=== PATIENT | male | born 1970 | race Caucasian/White ===

== ENCOUNTER → 2018-09-14 | Outpatient (CLI) | payer BC ==
--- NOTE | 2018-09-14 22:55 | CT ---
EXAMINATION TYPE: CT sinus wo con DATE OF EXAM: 09/14/2018 COMPARISON: Prior sinus CT August 12, 2014. HISTORY: Polyps per patient. Chronic sinusitis per order. CT DLP: 551 mGycm. Automated Exposure Control for Dose Reduction was Utilized. TECHNIQUE: CT scan of the sinuses is performed without contrast, axial images are obtained, coronal r eformatted images are also reviewed. FINDINGS: A hypoplastic or nonformed right frontal sinus remains present. Incidental persistent anter ior metopic suture is noted. Marked interval improvement in patchy opacification mucosal thickening f rom prior study. The surgically created ostiomeatal complex is patent bilaterally on the coronal imag es. Visualized portion of mastoid air cells show no abnormal opacification. The globes are intact bilate rally. IMPRESSION: Postsurgical change redemonstrated. Interval resolution of chronic paranasal pansinusiti s. No acute or chronic paranasal sinus disease identified in current study
== END | disposition home or self-care (01) ==
LOC: RADCTMAIN 16:58
PROVIDERS: ATTEND Otolaryngology
DX: J32.4 Chronic pansinusitis (principal); Z98.890 Other specified postprocedural states
CPT/HCPCS: 70486

== ENCOUNTER → 2019-08-06 | Outpatient (CLI) | payer BC ==
--- NOTE | 2019-08-06 22:44 | CT ---
EXAMINATION TYPE: CT sinus wo con DATE OF EXAM: 08/06/2019 COMPARISON: CT sinuses September 14, 2018. HISTORY: chronic sinusitis per order. Additional symptoms of sore throat for 3 months with history of prior sinus surgery per patient. CT DLP: 423 mGycm. Automated Exposure Control for Dose Reduction was Utilized. TECHNIQUE: CT scan of the sinuses is performed without contrast, axial images are obtained, coronal r eformatted images are also reviewed. FINDINGS: There is mild mucosal thickening involving the ethmoid sinuses bilaterally more prominent p osteriorly redemonstrated. No significant change from prior. Mild eccentric mucosal thickening involv ing the left maxillary sinus axial image 30 is new from prior study. There is hypoplastic or nonforme d right frontal sinus redemonstrated. Persistent anterior metopic suture incidentally noted. No signi ficant new suspicious opacification or air-fluid levels. The surgically treated ostiomeatal complex i s patent bilaterally on coronal image 20. Visualized portion of mastoid air cells show no abnormal opacification. The globes are intact bilate rally. IMPRESSION: Chronic paranasal sinus disease as detailed above. No acute sinusitis.
== END | disposition home or self-care (01) ==
LOC: RADCTMAIN 16:47
PROVIDERS: ATTEND Otolaryngology
DX: J32.9 Chronic sinusitis, unspecified (principal)
CPT/HCPCS: 70486

== ENCOUNTER 2020-12-16 09:12 | Day surgery (SDC) | payer BC ==
[2020-12-12 12:25] VITALS: BMI 27.8
[~2020-12-16 09:12] MED LIST: LACTATED RINGERS 1,000 ML IV SCH; LIDOCAINE 1% (10MG/ML) FOR IV START INTRADERMA PRN
[2020-12-16 10:18] VITALS: TEMP 97.3
[2020-12-16] MEDS ORDERED: PROPOFOL 10 MG/ML 20 ML VIAL IV ONE (10:41)
--- NOTE | 2020-12-16 10:59 | P.GSHP ---
History of Present Illness H&P Date: 12/16/20 Chief Complaint: Colon cancer screening Patient has had a colonoscopy. Last colonoscopy 30 years ago. No bowel complaints. No family history of colon cancer. Past Medical History Past Medical History: GERD/Reflux Additional Past Medical History / Comment(s): ALLERGIES. History of Any Multi-Drug Resistant Organisms: None Reported Past Surgical History: Tonsillectomy Additional Past Surgical History / Comment(s): 5 SINUS SURGERIES Past Anesthesia/Blood Transfusion Reactions: Motion Sickness, Postoperative Nausea & Vomiting (PONV) Past Psychological History: No Psychological Hx Reported Smoking Status: Never smoker Past Alcohol Use History: Rare Past Drug Use History: None Reported - Past Family History Mother Family Medical History: No Reported History Medications and Allergies Home Medications Medication Instructions Recorded Confirmed Type ALPRAZolam [Xanax] 0.25 mg PO HS PRN 12/12/20 12/16/20 History Fluticasone Nasal [place] [Flonase 1 spray EA NOSTRIL DAILY 12/12/20 12/16/20 History Nasal [place]] Multivitamins, Thera [Multivitamin 1 tab PO DAILY 12/12/20 12/16/20 History (formulary)] Omeprazole 20 mg PO DAILY 12/12/20 12/16/20 History Vitamin C (Unknown Dose) 1 tab PO DAILY 12/12/20 12/16/20 History Allergies Allergy/AdvReac Type Severity Reaction Status Date / Time No Known Allergies Allergy Verified 12/16/20 10:20 Surgical - Exam Vital Signs Temp Pulse Resp BP Pulse Ox 97.3 F L 52 L 16 102/60 98 12/16/20 10:15 12/16/20 10:15 12/16/20 10:15 12/16/20 10:15 12/16/20 10:15 Physical exam: General: Well-developed, well-nourished HEENT: Normocephalic, sclerae nonicteric Abdomen: Nontender, nondistended Extremities: No edema Neuro: Alert and oriented Assessment and Plan (1) Colon cancer screening Narrative/Plan: Will proceed with colonoscopy Current Visit: Yes Status: Acute Code(s): Z12.11 - ENCOUNTER FOR SCREENING FOR MALIGNANT NEOPLASM OF COLON SNOMED Code(s): 108274209
--- NOTE | 2020-12-16 11:01 | P.PCN ---
Date of Procedure: 12/16/20 Procedure(s) Performed: PREOPERATIVE DIAGNOSIS: Colon cancer screening POSTOPERATIVE DIAGNOSIS: Small ascending colon polyp PROCEDURE: Colonoscopy with biopsy ANESTHESIA: MAC SURGEON: Emery Malave M.D. SPECIMENS: Ascending colon polyp ENDOSCOPIC PROCEDURE: The patient was placed on the endoscopy table in the left decubitus position. The Olympus colonoscope was inserted into the anus and passed under direct visualization to the base of the cecum. The appendiceal orifice was visualized. From that point the scope was slowly withdrawn inspecting all surfaces carefully. There were no neoplastic inflammatory or polypoid lesions throughout the cecum. In the ascending colon small polyp was seen and removed using the snare with cautery technique. The remainder of the ascending, transverse, descending, sigmoid and rectum appeared normal. There was no visible diverticulosis noted. Digital rectal examination was normal. The patient was taken to the recovery room in stable condition per anesthesia guidelines. RECOMMENDATIONS: Resume diet. Await biopsy results.
[2020-12-16 11:13] VITALS: RESP 20
[2020-12-16 12:03] VITALS: BP 112/76; PULSE 77
== END 2020-12-16 11:34 | disposition home or self-care (01) ==
LOC: ORWHC2ENDO 09:12
PROVIDERS: ATTEND Surgery
DX: Z12.11 Encounter for screening for malignant neoplasm of colon (principal); K63.5 Polyp of colon; K21.9 Gastro-esophageal reflux disease without esophagitis; Z90.89 Acquired absence of other organs; Z98.890 Other specified postprocedural states; Z79.899 Other long term (current) drug therapy
CPT/HCPCS: 88305; 45385; J2704; 45380

== ENCOUNTER 2021-11-30 10:57 | Emergency (ER) | payer BC ==
[2021-11-30 11:19] VITALS: PULSE 66; RESP 16; TEMP 97.9
[2021-11-30 11:53] LABS: Appearance,Urine Clear (Clear); Bilirubin,Urine Negative (Negative); Blood,Urine Negative (Negative); Color,Urine Yellow; Glucose,Urine (UA) Negative (Negative); Hyaline Casts,Urine 1 /lpf (0-2); Ketones,Urine Negative (Negative); Leukocyte Esterase,Urine Moderate (Negative); Mucus,Urine Occasional /hpf; Nitrite,Urine Negative (Negative); Protein,Urine Negative (Negative); RBC,Urine <1 /hpf (0-5); Specific Gravity,Urine 1.022 (1.001-1.035); Urobilinogen,Urine <2.0 mg/dL (<2.0); WBC,Urine 1 /hpf (0-5)
[2021-11-30 12:33] VITALS: BP 138/88
[2021-11-30 12:52] LABS: Basophils # (A) 0.1 k/uL (0-0.2); Basophils % (A) 1 %; Eosinophils # (A) 0.2 k/uL (0-0.7); Eosinophils % (A) 2 %; HCT 47.1 % (39.0-53.0); HGB 15.4 gm/dL (13.0-17.5); Lymphocytes # (A) 1.3 k/uL (1.0-4.8); Lymphocytes % (A) 19 %; MCH 30.5 pg (25.0-35.0); MCHC 32.7 g/dL (31.0-37.0); MCV 93.5 fL (80.0-100.0); Monocytes # (A) 0.3 k/uL (0-1.0); Monocytes % (A) 4 %; Neutrophils # (A) 5.3 k/uL (1.3-7.7); Neutrophils % (A) 73 %; Platelet Count 272 k/uL (150-450); RBC 5.04 m/uL (4.30-5.90); RDW 12.4 % (11.5-15.5); WBC 7.2 k/uL (3.8-10.6)
[2021-11-30 13:01] LABS: ALT 28 U/L (4-49); AST 30 U/L (17-59); African American GFR (CKD) >90 (>60 ml/min/1.73 sqM); Albumin 4.5 g/dL (3.5-5.0); Alkaline Phosphatase 76 U/L (38-126); Anion Gap 9 mmol/L; Blood Urea Nitrogen 14 mg/dL (9-20); Calcium 9.1 mg/dL (8.4-10.2); Carbon Dioxide 22 mmol/L (22-30); Chloride 109 mmol/L (98-107); Glucose 110 mg/dL (74-99); Non-African American GFR(CKD) >90 (>60 ml/min/1.73 sqM); Potassium 4.5 mmol/L (3.5-5.1); Sodium 140 mmol/L (137-145); Total Bilirubin 0.6 mg/dL (0.2-1.3); Total Protein 7.4 g/dL (6.3-8.2)
--- NOTE | 2021-11-30 13:22 | CT ---
EXAMINATION TYPE: CT lumbar spine wo con DATE OF EXAM: 11/30/2021 COMPARISON: None HISTORY: Low back pain CT DLP: 954.1 mGycm CONTRAST: None TECHNIQUE: CT of the lumbar spine is performed on a spiral scan at 3 mm thick sections. Reconstructed images are performed in the coronal and sagittal planes. FINDINGS: T12-L1: No focal disc herniation or significant disc bulge is evident. No spinal canal stenosis or neural foraminal stenosis is present. L1-L2: No focal disc herniation or significant disc bulge is evident. No spinal canal stenosis or n eural foraminal stenosis is present L2-L3: No focal disc herniation or significant disc bulge is evident. No spinal canal stenosis or n eural foraminal stenosis is present L3-L4: No focal disc herniation or significant disc bulge is evident. No spinal canal stenosis or n eural foraminal stenosis is present L4-L5: Minimal disc bulge may be present with anterior thecal sac contact. No spinal canal stenosis i s present. L5-S1: Normal disc bulge is present without = compression. No displacement of the exiting nerve roots is evident. No spinal canal stenosis is present. Vertebral alignment appears normal. 0 body heights are preserved. Disc heights appear preserved. Couple of punctate nonobstructing renal stones are identified in the left mid kidney. IMPRESSION: Minimal disc bulge L4-5 and L5-S1. Some mild anterior thecal sac contact without stenosis is present at L4-5.
--- NOTE | 2021-11-30 13:38 | ED ---
General Adult HPI - General Chief complaint: Urogenital Stated complaint: poss UTI Time Seen by Provider: 11/30/21 11:23 Source: patient, RN notes reviewed Mode of arrival: ambulatory Limitations: no limitations - History of Present Illness Initial comments: This a 51-year-old male presents emergency Department chief complaint of urinary frequency. Patient states of recent he has noticed he has to urinate more frequently. Patient states that he is able to empty his bladder is no drooling. He denies any bowel changes including bowel incontinence. Patient states that his nose had some erectile dysfunction issues of glass few weeks. He states tho etimes is negative for infection or able to ejaculate. Patient states her temperature discussed the past. Patient did have recent for physical exam PCP in which nothing was found. Patient states he did not have his prostate checked he has had a colonoscopy in the past. Patient denies any trauma no penile discharge. Patient states he has had back pain and a past BACK pain no pain of his lower extremity no focal weakness. Patient states that at one point he did have some left radicular symptoms. He states this is not present. - Related Data Home Medications Medication Instructions Recorded Confirmed ALPRAZolam [Xanax] 0.125 - 0.25 mg PO HS PRN 12/12/20 11/30/21 Fluticasone Nasal [place] [Flonase 1 spray EA NOSTRIL DAILY 12/12/20 11/30/21 Nasal [place]] Esomeprazole Magnesium [NexIUM 20 mg PO DAILY 11/30/21 11/30/21 24Hr] Fexofenadine HCl [[place]ilma Allergy] 180 mg PO DAILY 11/30/21 11/30/21 Sulfamethox-Tmp 800-160Mg [Bactrim 1 tab PO Q12HR 11/30/21 11/30/21 DS 800-160 mg] Allergies Allergy/AdvReac Type Severity Reaction Status Date / Time sertraline [From Zoloft] AdvReac Itching Verified 11/30/21 13:15 Review of Systems ROS Statement: Those systems with pertinent positive or pertinent negative responses have been documented in the HPI. ROS Other: All systems not noted in ROS Statement are negative. Past Medical History Past Medical History: GERD/Reflux Additional Past Medical History / Comment(s): ALLERGIES. History of Any Multi-Drug Resistant Organisms: None Reported Past Surgical History: Tonsillectomy Additional Past Surgical History / Comment(s): 5 SINUS SURGERIES Past Anesthesia/Blood Transfusion Reactions: Motion Sickness, Postoperative [place] & Vomiting (PONV) Past Psychological History: No Psychological Hx Reported Smoking Status: Never smoker Past Alcohol Use History: Rare Past Drug Use History: None Reported - Past Family History Mother Family Medical History: No Reported History General Exam Limitations: no limitations General appearance: alert, in no apparent distress Head exam: Present: atraumatic, normocephalic, normal inspection Eye exam: Present: normal appearance, PERRL, EOMI. Absent: scleral icterus, conjunctival injection, periorbital swelling ENT exam: Present: normal exam, mucous membranes moist Neck exam: Present: normal inspection, full ROM. Absent: tenderness, meningismus, lymphadenopathy Respiratory exam: Present: normal lung sounds bilaterally. Absent: respiratory distress, wheezes, rales, rhonchi, stridor Cardiovascular Exam: Present: regular rate, normal rhythm, normal heart sounds. Absent: systolic murmur, diastolic murmur, rubs, gallop, clicks GI/Abdominal exam: Present: soft, normal bowel sounds. Absent: distended, tenderness, guarding, rebound, rigid Extremities exam: Present: other (Lower extremity strength equal bilaterally) Neurological exam: Present: alert, oriented X3, reflexes normal. Absent: motor sensory deficit Skin exam: Present: warm, dry, intact, normal color. Absent: rash Course Vital Signs 11/30/21 11/30/21 11:17 12:33 Temperature 97.9 F Pulse Rate 66 Respiratory 16 Rate Blood Pressure 138/88 O2 Sat by Pulse 98 Oximetry Medical Decision Making - Medical Decision Making Patient presented for urinary frequency, and rectal dysfunctional she is. Patient did have full workup given urinalysis unremarkable as is a new symptom. Patient has no active plan to consult patient and family is concerned about back problems. I did image his lumbar spine which shows mild disc bulging patient has no associated symptoms with this. Patient will follow-up with urology made related to BPH type symptoms. - Lab Data Result diagrams: 11/30/21 12:49 11/30/21 12:49 Lab Results 11/30/21 11/30/21 11/30/21 Range/Units 11:43 12:49 12:49 WBC 7.2 (3.8-10.6) k/uL RBC 5.04 (4.30-5.90) m/uL Hgb 15.4 (13.0-17.5) gm/dL Hct 47.1 (39.0-53.0) % MCV 93.5 (80.0-100.0) fL MCH 30.5 (25.0-35.0) pg MCHC 32.7 (31.0-37.0) g/dL RDW 12.4 (11.5-15.5) % Plt Count 272 (150-450) k/uL MPV 8.0 Neutrophils % 73 % Lymphocytes % 19 % Monocytes % 4 % Eosinophils % 2 % Basophils % 1 % Neutrophils # 5.3 (1.3-7.7) k/uL Lymphocytes # 1.3 (1.0-4.8) k/uL Monocytes # 0.3 (0-1.0) k/uL Eosinophils # 0.2 (0-0.7) k/uL Basophils # 0.1 (0-0.2) k/uL Sodium 140 (137-145) mmol/L Potassium 4.5 (3.5-5.1) mmol/L Chloride 109 H (98-107) mmol/L Carbon Dioxide 22 (22-30) mmol/L Anion Gap 9 mmol/L BUN 14 (9-20) mg/dL Creatinine 0.94 (0.66-1.25) mg/dL Est GFR (CKD-EPI)AfAm >90 (>60 ml/min/1.73 sqM) Est GFR (CKD-EPI)NonAf >90 (>60 ml/min/1.73 sqM) Glucose 110 H (74-99) mg/dL Calcium 9.1 (8.4-10.2) mg/dL Total Bilirubin 0.6 (0.2-1.3) mg/dL AST 30 (17-59) U/L ALT 28 (4-49) U/L Alkaline Phosphatase 76 (38-126) U/L Total Protein 7.4 (6.3-8.2) g/dL Albumin 4.5 (3.5-5.0) g/dL Urine Color Yellow Urine Appearance Clear (Clear) Urine pH 6.0 (5.0-8.0) Ur Specific [place] 1.022 (1.001-1.035) Urine Protein Negative (Negative) Urine Glucose (UA) Negative (Negative) Urine Ketones Negative (Negative) Urine Blood Negative (Negative) Urine Nitrite Negative (Negative) Urine Bilirubin Negative (Negative) Urine Urobilinogen <2.0 (<2.0) mg/dL Ur Leukocyte Esterase Moderate H (Negative) Urine RBC <1 (0-5) /hpf Urine WBC 1 (0-5) /hpf Hyaline Casts 1 (0-2) /lpf Urine Mucus Occasional H (None) /hpf Disposition Clinical Impression: Urinary frequency Disposition: HOME SELF-CARE Condition: Stable Instructions (If sedation given, give patient instructions): Urinary Urgency and Frequency (DC), Enlarged Prostate (BPH) (ED) Additional Instructions: Please return to the Emergency Department if symptoms worsen or any other concerns. Is patient prescribed a controlled substance at d/c from ED?: No Referrals: Scottie Floyd MD [Primary Care Provider] - 1-2 days Maximiliano Dubois MD [STAFF PHYSICIAN] - 1-2 days Time of Disposition: 13:34
== END 2021-11-30 14:34 | disposition home or self-care (01) ==
LOC: EC 10:57
DX: R35.0 Frequency of micturition (principal); Z88.7 Allergy status to serum and vaccine
CPT/HCPCS: 36415; 72131; 80053; 81001; 85025

== ENCOUNTER → 2024-11-12 | Outpatient (CLI) | payer BC ==
--- NOTE | 2024-11-12 17:59 | CT ---
EXAMINATION TYPE: CT sinus wo con CT DLP: 429.4 mGycm, Automated exposure control for dose reduction was used. DATE OF EXAM: 11/12/2024 5:17 PM COMPARISON: CT sinus 08/06/2019, 09/14/2018, 08/12/2014. CLINICAL INDICATION:Male, 53 years old with history of J32.0 CHRONIC MAXILLARY SINUSITIS; PHH, chroni c sinus congestion CONTRAST: None. TECHNIQUE: Multiple thin axial images were obtained through the paranasal sinuses without the use of IV contrast. Additional coronal and sagittal reformatted images were submitted for evaluation. FINDINGS: Frontal sinuses: Hypoplastic appearance of the right frontal sinus. Both sinuses are clear. Frontal R ecess: Clear Maxillary Sinuses: Normally developed and aerated. Surgical changes involving the medial garcia of the bilateral maxillary sinuses. Maxillary Infundibula([facility]): Postsurgical changes of the bilateral ossicular complexes which are paten t bilaterally. Ethmoid sinuses: Normally developed and aerated. Postsurgical changes from bilateral ethmoidectomy. S imilar mild mucosal thickening involving the ethmoid sinuses. Ethmoidal notch: Supraorbital pneumatiz ation is identified. Sphenoid sinuses: Normally developed and aerated. There is partial sellar sphenoid sinus pneumatizati on without evidence of dehiscence. No dehiscence of carotid canal. No evidence of optic nerve dehisc ence within the sphenoid sinus. No evidence of [place] cells. Sphenoethmoidal recesses: Postsurgical c hanges and patent. Nasal septum: Within normal limits.. Nasal Turbinates: Within normal limits. Mastoid air cells & middle ears: The air cells are clear. The middle ears are grossly unremarkable. Modified Soft tissues & Brain: Partially seen without gross abnormality. Globes are intact. Persisten t metopic suture redemonstrated. Other: Cribriform plate demonstrates symmetric Keros classification type 2 cribriform plate. No evidence of bony dehiscence of skull base. Lamina papyracea is intact without evidence of remote orbital fracture or orbital prolapse into the e thmoid sinus. IMPRESSION: Overall similar postsurgical changes with mild chronic paranasal sinus disease. No evidence for acute sinusitis. [facility], , 11/12/2024 5:57 PM
== END | disposition home or self-care (01) ==
LOC: RADCTMAIN 16:57
PROVIDERS: ATTEND Otolaryngology
DX: J32.0 Chronic maxillary sinusitis (principal); J34.89 Other specified disorders of nose and nasal sinuses; Z98.890 Other specified postprocedural states
CPT/HCPCS: 70486